=== PATIENT | female | born 1955 | race Caucasian/White ===

== ENCOUNTER 2024-02-02 11:38 | Emergency (ER) | payer MEDICARE ==
[~2024-02-02] VITALS: Ht 160 cm; Wt 84.5 kg
[~2024-02-02 11:38] MED LIST: ANUSOL1 OIN; COLACE 100100 MG/CAP PO; MACROBID 1100 MG/CAP; MOTRIN 600600 MG/TAB PO; PERCOCET 325 MG1 TA2 PO; STOOL SOFTENER100 M2 PO
[2024-02-02 11:49] VITALS: TEMP 98.7
[2024-02-02 15:55] LABS: CSF APPEARANCE CLEAR; CSF COLOR COLORLESS; CSF RBC 51 /mm3 (0-0)
[2024-02-02 15:59] LABS: GLUCOSE,CSF 59 mg/dL (40-70); TOTAL PROTEIN,CSF 24 mg/dL (15-45)
[2024-02-02 16:25] LABS: CSF APPEARANCE CLEAR; CSF COLOR COLORLESS; CSF RBC 151 /mm3 (0-0)
[2024-02-02 17:15] LABS: CSF MONONUCLEAR 100 % (70-100); CSF POLYMORPHONUCLEAR 0 % (0-6)
[2024-02-02 17:22] LABS: CSF MONONUCLEAR 100 % (70-100); CSF POLYMORPHONUCLEAR 0 % (0-6)
[2024-02-02 17:50] VITALS: BP 178/102; PULSE 64
== END 2024-02-02 17:50 | disposition home or self-care (01) ==
LOC: COL.ER 11:38
PROVIDERS: Emergency Medicine
DX: H54.7 Unspecified visual loss (principal)